=== PATIENT | female | born 1995 | race African-American/Black ===

== ENCOUNTER 2018-07-02 09:30 | Emergency (ER) | payer MEDICAID ==
[~2018-07-02] VITALS: Ht 160 cm; Wt 98.0 kg
[2018-07-02 11:00] LABS: CLARITY URINE CLEAR (CLEAR); COLOR URINE YELLOW (YELLOW); KETONES URINE TRACE (NEGATIVE); LEUKOCYTE ESTERASE URINE NEGATIVE (NEGATIVE); NITRITE URINE NEGATIVE (NEGATIVE); OCCULT BLOOD URINE NEGATIVE (NEGATIVE); PH URINE 7.5 (4.5-8.0); PROTEIN URINE NEGATIVE (NEGATIVE); SPECIFIC GRAVITY URINE 1.024 (1.005-1.030)
[2018-07-02 11:23] LABS: *AMPHETAMINES SCREEN URINE NEGATIVE (NEGATIVE); *BARBITURATES SCREEN URINE NEGATIVE (NEGATIVE); *BENZODIAZEPINES SCREEN URINE NEGATIVE (NEGATIVE); *COCAINE SCREEN URINE NEGATIVE (NEGATIVE); METHADONE URINE SCREEN NEGATIVE (NEGATIVE); OPIATES URINE SCREEN NEGATIVE (NEGATIVE)
[2018-07-02 11:24] LABS: PHENCYCLIDINE URINE SCREEN NEGATIVE (NEGATIVE)
[2018-07-02 11:28] LABS: CANNABINOID URINE SCREEN PRESUMTIVE POSITIVE (NEGATIVE)
[2018-07-02 11:37] LABS: BASOPHILS % 0.4 % (0.0-2.0); EOSINOPHILS % 0.5 % (0.0-5.0); HEMOGLOBIN. 13.4 g/dL (12.0-16.0); LYMPHOCYTES % 22.5 % (20.0-50.0); MEAN CORPUSCULAR HEMOGLOBIN 28.4 pg (28.0-32.0); MEAN CORPUSCULAR VOLUME 86.7 fL (81.0-99.0); MONOCYTES % 4.6 % (2.0-8.0); PLATELET 336 x1000/uL (130-400); RED BLOOD CELL COUNT 4.73 mill/uL (4.2-5.4); RED CELL DISTRIBUTION WIDTH 13.9 % (11.6-14.6)
[2018-07-02 11:43] LABS: CHLORIDE 105 mEq/L (98-107)
[2018-07-02 11:46] LABS: ETHANOL BLOOD < 10 mg/dL
[2018-07-02 14:26] VITALS: BP 128/81
== END 2018-07-02 14:27 | disposition home or self-care (01) ==
LOC: ER 09:30
DX: G44.89 Other headache syndrome (principal); M54.9 Dorsalgia, unspecified; R20.2 Paresthesia of skin; F12.10 Cannabis abuse, uncomplicated; J45.909 Unspecified asthma, uncomplicated
CPT/HCPCS: 36415; 72100; 80305; 80320; 81025; 99284; G0480

== ENCOUNTER 2018-07-08 07:51 | Emergency (ER) | payer MEDICAID ==
[~2018-07-08] VITALS: Ht 160 cm; Wt 118.0 kg
[2018-07-08] MEDS ORDERED: IBUPROFEN 600MG TABLET PO ONE (09:30)
[2018-07-08 09:55] VITALS: BP 119/90
== END 2018-07-08 10:00 | disposition home or self-care (01) ==
LOC: ER 08:10
DX: L65.8 Other specified nonscarring hair loss (principal)
CPT/HCPCS: 81025; 99283; Z7610

== ENCOUNTER 2018-07-28 02:04 | Emergency (ER) | payer MEDICAID ==
[~2018-07-28] VITALS: Ht 165.1 cm; Wt 81.0 kg
[2018-07-28] MEDS ORDERED: DIPHENHYDRAMINE 50MG/ML VIAL IV ONE (04:30)
[2018-07-28] MEDS ORDERED: METOCLOPRAMIDE HCL 10MG/2ML VIAL IV ONE (04:30)
[2018-07-28 06:00] VITALS: BP 124/69
== END 2018-07-28 06:01 | disposition home or self-care (01) ==
LOC: ER 02:16
DX: R51 Headache (principal)
CPT/HCPCS: 96374; 96375; 99283; J1200; J2765

== ENCOUNTER 2018-07-29 18:04 | Emergency (ER) | payer MEDICAID ==
[~2018-07-29] VITALS: Ht 162.6 cm; Wt 118.0 kg
[2018-07-29] MEDS ORDERED: SODIUM CHLORIDE 0.9% 1,000 ML IV ONE (18:42)
[2018-07-29] MEDS ORDERED: DIPHENHYDRAMINE 50MG/ML VIAL IV ONE (18:45)
[2018-07-29] MEDS ORDERED: METOCLOPRAMIDE HCL 10MG/2ML VIAL IV ONE (18:45)
[2018-07-29 19:31] LABS: BASOPHILS % 0.5 % (0.0-2.0); EOSINOPHILS % 0.8 % (0.0-5.0); HEMATOCRIT. 41.2 % (36.0-48.0); HEMOGLOBIN. 13.6 g/dL (12.0-16.0); LYMPHOCYTES % 34.3 % (20.0-50.0); MEAN PLATELET VOLUME 7.9 fl (7.4-10.4); MONOCYTES % 6.7 % (2.0-8.0); NEUTROPHILS % 57.7 % (40.0-76.0); PLATELET 280 x1000/uL (130-400); RED BLOOD CELL COUNT 4.68 mill/uL (4.2-5.4); RED CELL DISTRIBUTION WIDTH 14.1 % (11.6-14.6)
[2018-07-29 19:38] LABS: CHLORIDE 108 mEq/L (98-107)
[2018-07-29 21:23] LABS: CLARITY URINE CLOUDY (CLEAR); COLOR URINE YELLOW (YELLOW); KETONES URINE NEGATIVE (NEGATIVE); LEUKOCYTE ESTERASE URINE TRACE (NEGATIVE); NITRITE URINE NEGATIVE (NEGATIVE); OCCULT BLOOD URINE 2+ (NEGATIVE); PROTEIN URINE NEGATIVE (NEGATIVE); SPECIFIC GRAVITY URINE 1.022 (1.005-1.030)
[2018-07-29 22:08] VITALS: BP 127/92
== END 2018-07-29 22:18 | disposition home or self-care (01) ==
LOC: ER 18:04
DX: R51 Headache (principal); N39.0 Urinary tract infection, site not specified
CPT/HCPCS: 36415; 80053; 81003; 81025; 85025; 96374; 96375; 99284; J1200; J2765; J7030

== ENCOUNTER 2018-07-30 22:37 | Emergency (ER) | payer MEDICAID ==
[~2018-07-30] VITALS: Ht 162.6 cm; Wt 110.0 kg
[2018-07-30] MEDS ORDERED: METHYLPREDNISOLONE SOD SUCC 125 MG/2 ML VIAL IM STA (23:43)
[2018-07-30] MEDS ORDERED: KETOROLAC 60MG/2ML VIAL IM STA (23:43)
[2018-07-30] MEDS ORDERED: METOCLOPRAMIDE HCL 10MG/2ML VIAL IM ONE (23:45)
[2018-07-31 00:15] LABS: CLARITY URINE CLEAR (CLEAR); COLOR URINE YELLOW (YELLOW); KETONES URINE NEGATIVE (NEGATIVE); LEUKOCYTE ESTERASE URINE NEGATIVE (NEGATIVE); NITRITE URINE NEGATIVE (NEGATIVE); OCCULT BLOOD URINE NEGATIVE (NEGATIVE); PH URINE 7.5 (4.5-8.0); PROTEIN URINE NEGATIVE (NEGATIVE); SPECIFIC GRAVITY URINE 1.018 (1.005-1.030)
[2018-07-31 04:24] VITALS: BP 136/88
== END 2018-07-31 04:26 | disposition home or self-care (01) ==
LOC: ER 22:37
DX: G44.89 Other headache syndrome (principal); J45.909 Unspecified asthma, uncomplicated
CPT/HCPCS: 36415; 81003; 81025; 85651; 86140; 96372; 99283; J1885; J2765; J2930

== ENCOUNTER 2018-08-08 20:30 | Emergency (ER) | payer MEDICAID ==
[~2018-08-08] VITALS: Ht 167.6 cm; Wt 100.0 kg
[2018-08-08] MEDS ORDERED: TRAMADOL 50MG TABLET PO ONE (22:45)
[2018-08-08 23:59] VITALS: BP 134/79
== END 2018-08-09 00:11 | disposition home or self-care (01) ==
LOC: ER 20:30
DX: R21 Rash and other nonspecific skin eruption (principal); R51 Headache
CPT/HCPCS: 99283

== ENCOUNTER 2018-09-16 10:42 | Emergency (ER) | payer MEDICAID ==
[~2018-09-16] VITALS: Ht 162.6 cm; Wt 109.0 kg
[2018-09-16] MEDS ORDERED: ACETAMINOPHEN 325MG TABLET PO ONE (14:15)
[2018-09-16] MEDS ORDERED: PEN G BENZ/PEN G PROCAINE CR 1.2 MMU/2 ML IM ONE (14:15)
[2018-09-16 15:58] VITALS: BP 122/80
== END 2018-09-16 15:59 | disposition home or self-care (01) ==
LOC: ER 10:42
DX: J03.80 Acute tonsillitis due to other specified organisms (principal); B96.89 Other specified bacterial agents as the cause of diseases classified elsewhere
CPT/HCPCS: 81025; 96372; 99283; J0558